=== PATIENT | female | born 2000 | race Two or more races ===

== ENCOUNTER 2024-05-24 16:25 | Emergency (ER) | payer OTHER ==
[~2024-05-24] VITALS: Ht 157.5 cm; Wt 54.4 kg
[2024-05-24] MEDS ORDERED: ACETAMINOPHEN 500 MG GEL..CAP PO ONE (18:09)
[2024-05-24 18:40] LABS: HEMATOCRIT 34.1 % (36.0-45.00); HEMOGLOBIN 11.7 g/dL (12.0-15.00); MEAN CELL VOLUME 88.3 fL (80.00-100.00); MEAN CORPUSCULAR HEMOGLOBIN 30.3 pg (27.00-32.0); MEAN CORPUSCULAR HGB CONC 34.3 g/dl (32.0-36.0); PLATELET COUNT 164 K/uL (150-450); RED BLOOD COUNT 3.87 M/uL (4.00-6.00); RED CELL DISTRIBUTION WIDTH 13.6 % (11.5-14.5)
== END 2024-05-24 19:52 | disposition home or self-care (01) ==
LOC: ER 16:26
PROVIDERS: Emergency Medicine
DX: B34.9 Viral infection, unspecified (principal); R53.81 Other malaise; Z20.822 Contact with and (suspected) exposure to COVID-19